=== PATIENT | female | born 1990 | race Caucasian/White ===

== ENCOUNTER 2017-10-03 12:40 | Emergency (ER) | END 2017-10-03 17:16 | disposition left against medical advice (07) ==

== ENCOUNTER 2018-03-27 13:04 | Outpatient (CLI) | END 2018-03-27 14:40 | disposition home or self-care (01) ==

== ENCOUNTER 2018-05-02 07:16 | Inpatient (IN) | END 2018-05-05 18:43 | disposition home or self-care (01) | DRG 788 ==